=== PATIENT | male | born 2000 ===

== ENCOUNTER 2020-01-11 15:11 | Outpatient (CLI) | payer OTHER | END 2020-01-11 15:22 | disposition home or self-care (01) | LOC: RAD 15:11 | PROVIDERS: ATTEND Orthopaedic Surgery Sports Medicine | DX: M75.51 Bursitis of right shoulder (principal) ==

== ENCOUNTER → 2020-01-17 | Outpatient (CLI) | payer OTHER | END | disposition home or self-care (01) | LOC: MAMO-SONO 01-12 14:15 → SONOGRAMA 01-12 14:38 | PROVIDERS: ATTEND Orthopaedic Surgery Sports Medicine | DX: M75.51 Bursitis of right shoulder (principal) ==